=== PATIENT | male | born 1990 | race American Indian/Alaskan Native ===

== ENCOUNTER 2020-02-22 20:46 | Emergency (ER) | payer OTHER ==
[~2020-02-22] VITALS: Ht 180.3 cm; Wt 84.4 kg
[~2020-02-22 20:46] MED LIST: DOXYCYCLINE HY100 MG PO
== END 2020-02-22 22:05 | disposition left against medical advice (07) ==
LOC: ED 20:46
DX: K08.89 Other specified disorders of teeth and supporting structures (principal); F17.200 Nicotine dependence, unspecified, uncomplicated; Z53.21 Procedure and treatment not carried out due to patient leaving prior to being seen by health care provider